=== PATIENT | female | born 1980 | race Two or more races ===

== ENCOUNTER → 2024-10-11 | Outpatient (CLI) | payer OTHER, SELFPAY ==
--- NOTE | 2024-10-11 15:00 | XR_ITS ---
Examination: Diagnostic digital mammography, bilateral Computer aided detection 3-D breast Tomosynthesis, bilateral Date and time of exam: October 11, 2024 1458 hours Compared to mammograms dating to June 02, 2023 INDICATIONS: Intermittent left breast pain beginning one year ago Technique: Nonmagnified MLO, CC views of the breasts to been obtained, reconstructed from 3-D Tomosynthesis images. R2 computer aided detection program utilized for evaluation of suspicious masses and/or abnormal calcifications. 3-D Tomosynthesis images obtained. Findings: The breasts are heterogeneously dense, which may obscure small masses Circumscribed 21 mm mass inner upper left breast 12 mm nodule lobular margins inner right breast Impression: BI-RADS Category 0: Incomplete: Need additional imaging evaluation Recommend follow-up spot tomographic views of 12 mm nodule inner right breast as well as bilateral breast sonography to complete the workup.
--- NOTE | 2024-10-11 15:15 | XR_ITS ---
Examination: Breast ultrasound, unilateral, left complete Date and time of exam: October 11, 2024 1503 hours INDICATIONS: Intermittent left breast pain one year, outside mammogram June 02, 2023 19 mm mass upper inner left breast 11 mm mass left breast Technique: Real-time bhagat scale ultrasonographic imaging performed left breast including all 4 quadrants as well as nipple retroareolar and axillary region. Findings: 12:00 cyst 10 x 13 mm 7:00 cyst 15 x 15 mm 10:00 irregular mass 22 x 16 x 3 cm, taller than wide, indistinct margins IMPRESSION: BI-RADS Category 4: Suspicious for malignancy Suspicious mass 10:00 position left breast, biopsy is needed to exclude breast carcinoma, this mass is amenable to ultrasound-guided breast biopsy for diagnosis
== END | disposition home or self-care (01) ==
LOC: CDIM 14:47
PROVIDERS: Referring Provider Registered Nurse; Visit Provider Registered Nurse
DX: N63.22 Unspecified lump in the left breast, upper inner quadrant (principal); R92.342 Mammographic extreme density, left breast; N63.10 Unspecified lump in the right breast, unspecified quadrant
CPT/HCPCS: 76641; 77062; 77066; G0279

== ENCOUNTER → 2025-01-23 | Outpatient (CLI) | payer OTHER, SELFPAY ==
[2025-01-22 13:15] LABS: Basophils # (Auto) 0.1 Thou/mm3 (0.0-0.2); Basophils % (Auto) 1 % (0-2.5); Eosinophils # (Auto) 0.2 Thou/mm3 (0.0-0.5); Eosinophils % (Auto) 3 % (0-10); Hematocrit 30.8 % (36.0-46.0); Hemoglobin 9.5 g/dL (12.0-16.0); Immature Granulocytes Auto 0.02 Thou/mm3 (0.00-0.00); Lymphocytes # (Auto) 1.7 Thou/mm3 (1.0-4.8); Lymphocytes % (Auto) 25 % (10-50); Mean Corpuscular HGB Conc 30.8 g/dl (31.0-37.0); Mean Corpuscular Hemoglobin 21.7 pg (25.0-35.0); Mean Corpuscular Volume 70 fL (80-100); Monocytes # (Auto) 0.6 Thou/mm3 (0.0-0.8); Monocytes % (Auto) 9 % (0-12); Neutrophils # (Auto) 4.3 Thou/mm3 (1.8-7.7); Neutrophils % (Auto) 62 % (37-80); Nucleated Red Blood Cell # 0.00 Thou/mm3 (0.00-0.00); Nucleated Red Blood Cell % 0 /100 WBC (0); Platelet Count 331 Thou/mm3 (140-440); RDW Standard Deviation 45.1 fL (36.4-46.3); Red Blood Count 4.38 Miln/mm3 (4.00-5.20); White Blood Count 6.9 Thou/mm3 (3.6-11.0)
[2025-01-22 13:29] LABS: HCG,Qualitative Serum Negative
[2025-01-22 13:40] LABS: INR 1.0 (0.9-1.3); Partial Thromboplastin Time 25.2 Seconds (22.0-36.0); Prothrombin Time 10.7 Seconds (9.0-12.2)
--- NOTE | 2025-01-23 09:30 | XR_ITS ---
Examinations: Ultrasound-guided percutaneous breast biopsy, left breast 10:00 nodule Left breast sonography limited INDICATIONS: Left breast sonogram October 11, 2024 BI-RADS 4 suspicious nodule 10:00 position left breast. Exam date and time: January 23, 2025 0953 hours. Informed consent provided. Technique: A timeout was completed verifying correct patient, procedure, site, positioning, and special equipment if applicable Informed consent provided. The patient was placed in a supine position for the breast biopsy. Sonographic images of the breast were performed for localization of the suspicious nodule The patient's breast was prepped and draped in sterile fashion. Maximum sterile barrier technique, hand hygiene, ultrasound sterile technique 1% lidocaine was used to anesthetize the skin and breast adjacent to the suspicious nodule. Utilizing ultrasonographic guidance, 8 core biopsies were obtained of the suspicious nodule utilizing an 18-gauge BioPince needle. The specimens appears satisfactory. US guided breast biopsy marker placement. Estimated blood loss 3 cc. The patient tolerated the procedure well and there were no complications. Impression: Successful ultrasound-guided percutaneous breast biopsy, left breast 10:00 nodule. Ultrasound guided breast biopsy marker placement.
== END | disposition home or self-care (01) ==
LOC: SDIM 09:10
PROVIDERS: Radiology Diagnostic Radiology; PCP Registered Nurse; Referring Provider Registered Nurse; Visit Provider Registered Nurse
DX: C50.212 Malignant neoplasm of upper-inner quadrant of left female breast (principal); Z17.0 Estrogen receptor positive status [ER+]; Z17.21 Progesterone receptor positive status; Z01.812 Encounter for preprocedural laboratory examination
CPT/HCPCS: 19083; 36415; 84703; 85025; 85610; 85730; A4648

== ENCOUNTER 2025-02-27 08:41 | Outpatient (RCR) | payer MEDICAID, SELFPAY ==
--- NOTE | 2025-02-27 10:36 | CTCFLWUP_ITS ---
Patient: SIRISHA ANDRE : 1980 Page 3 of 5 FOLLOW UP NOTE DATE OF SERVICE: 02/27/2025 NAME: SIRISHA ANDRE ACCOUNT: [id number] : 1980 AGE: 44 INTERVAL HISTORY: Jes Grimm, a 44-year-old woman, presented with newly diagnosed left breast mucinous carcinoma. She self-palpated a breast mass in July, with biopsy confirming a 1.2 cm tumor that is 90% ER/TN positive. Her family history includes paternal aunts with breast cancer. She recently gave in October 2024. Treatment initiated with arimidex breast MRI ordered for staging, and referral made to breast surgeon Dr. Montelongo for surgical consultation. ONCOLOGY HISTORY: DIAGNOSIS: Left breast cancer DATE OF DIAGNOSIS: 10/2024 STAGE/TNM: Like stage 1 TREATMENT HISTORY: Care?Plan Start?Date Cycle Day Intent HISTORY OF PRESENT ILLNESS: Subjective History of Present Illness Sirisha Andre is a 44-year-old woman with a new diagnosis of breast cancer. The patient self-palpated a mass in her left breast in July while taking a shower. Her last mammogram and ultrasound in August 2023 were reported as normal. In October 2024, an ultrasound revealed a 22 x 16 x 3 mm mass with indistinct margins, taller than wide. Biopsy results showed mucinous carcinoma, measuring 1.2 cm. The patient was informed that what she was feeling was likely fat tissue rather than the actual cancer. The patient has a family history of breast cancer, with her father's sisters having from the disease, though the age of onset is unknown. She recently gave on October 07, 2024. The patient has not reported any specific symptoms related to the breast mass or cancer diagnosis. The oncologist has recommended starting hormone therapy with a daily pill to begin shrinking the tumor while awaiting further evaluation. An MRI of the breast has been ordered to ensure a clear view of the cancer before surgery. The patient has been referred to a breast specialist surgeon for consultation. Medical History - Breast cancer, newly diagnosed - Normal mammogram and ultrasound in August 2023 - Childbirth on October 07, 2024 Medications and Supplements - Hormone-blocking pill - Recently prescribed for breast cancer - To be taken once daily, any time of day - May cause side effects similar to menopause: hot flashes, body aches - Side effects expected to diminish over time Family History - Father's sisters: from breast cancer (age unknown) Social History - Living Situation: Patient has a daughter Objective Physical Examination Breast: Left breast palpated. Mass felt, described as very small. Laboratory, Imaging, and Diagnostic Test Results - Mammogram and ultrasound (August 2023): Normal - Ultrasound (October 2024): 22 x 16 x 3 mm mass, taller than wide with indistinct margins - Biopsy results: - Diagnosis: Mucinous carcinoma - Tumor size: 1.2 cm - ER/TN status: 90% positive - Ki-67: Positive (percentage not specified) OTHER MEDICAL HISTORY/CONDITIONS: Left?breast?cancer? Hypothyroid Anemia Left leg varicose Jul 2024 x 3 - last 2007 FAMILY HISTORY: Cancer History:?2 Pat aunts - breast -dx unknown ages SOCIAL HISTORY: Occupational?History:?Unemployed Education?Level:?Completed 9th grade Marital?Status:? Tobacco?Use:?Denies ETOH?Use:?Denies Drug?Note:?Denies Social?History?Note:?Lives?with? [employer] HISTORY: Menarche?-?Age:?13 Date?LMP:?02/12/2025 Hormone?Use:?Denies :?3 Live?Births:?3 Age?1st?:?21 MEDICATIONS: 1. Arimidex - 1 mg 1 tab Daily 2. levothyroxine - 150 mcg 1 tab Daily 3. Miralax - 17 gram/dose Daily 4. Vitamin D2 - 1,250 mcg (50,000 unit) 1 Capsule Weekly Medications Last Reconciled by Love Knight RN on 02/27/2025 ALLERGIES: No Known Drug Allergies REVIEW OF SYSTEMS: A complete 14-point review of systems was performed and is negative except as noted in interval history. PHYSICAL EXAMINATION: VITAL SIGNS: Temperature?97.7, B/P?130/76, Height?64.5?inches, Oxygen?Saturation?99% Weight?210?lbs PAIN: 0 - No pain ECOG Performance Status: 0 - Asymptomatic and fully active GENERAL APPEARANCE: Appears well, in no apparent distress, appropriately interactive. HEENT: Normocephalic, no temporal wasting, normal conjunctiva, no scleral icterus, normal hearing, lips without lesions, neck normal range of motion. CARDIOVASCULAR: Not assessed. PULMONARY: Normal respiratory effort, no respiratory distress or use of accessory muscles, speaking in full sentences, no tachypnea. EXTREMITIES: No pedal edema or cyanosis. SKIN: Normal skin appearance. NEUROLOGIC: Alert and oriented x4. PSHYCHIATRIC: Appropriate affect, mood normal, behavior normal, intact thought and speech. LABORATORY DATA: I have personally reviewed and interpreted each of the patient?s relevant lab tests, abnormal findings are below: Date ASSESSMENT/PLAN: Sirisha Andre is a 44-year-old woman with a new diagnosis of breast cancer, presenting for evaluation and management. Breast Cancer, Left Breast Assessment: Patient self-palpated a mass in her left breast in July 2024. Previous mammogram and ultrasound in August 2023 were normal. Ultrasound in October 2024 revealed a [id number] mm mass with indistinct margins, taller than wide. Biopsy confirmed mucinous carcinoma, measuring 1.2 cm. Tumor characteristics include 90% ER/TN positive and Ki-67 positive. Family history significant for breast cancer in paternal aunts. Based on current information, likely stage I breast cancer, pending further imaging studies. Plan: - Start hormonal therapy: arimidex - Order breast MRI for further evaluation and staging - Refer to breast surgeon, Dr. Montelongo recommended - Continue current medication until surgical intervention - Educate patient on potential side effects of hormonal therapy (hot flashes, body aches) - Follow up after MRI and surgical consultation ORDERS: Order # Description [id number] MRI + Breast + With Contrast [id number] MD Follow Up 4 Week RETURN TO CLINIC: I reviewed the diagnosis, prognosis, and recommended treatment/procedure options with the patient (and/or their legal sales representatives), including the potential benefits, risks, side effects and alternative therapies. We also discussed the option of no treatment and the possibility of clinical trial participation, if applicable. All questions were addressed, and they demonstrated understanding. They provided informed consent to proceed with the proposed plan of care. BILLING AND COMPLIANCE: I reviewed external records from providers outside my specialty as summarized above. I spent a total of 50 minutes on this patient?s care on the day of their visit excluding time spent related to any billed procedures. This time includes time spent with the patient as well as time spent documenting in the medical record, reviewing patients records and tests, obtaining history, placing orders, communicating with other healthcare professionals, counseling the patient, family or caregiver, and/or care coordination for the diagnoses above. Electronically Signed by: Henrry Delgado MD T: 10:34 AM CC: PCP: Referring: Anita Dyson This document was completed utilizing speech recognition software. Grammatical errors, random word insertions, pronoun errors, and incomplete sentences are an occasional consequence of this system due to software limitations, ambient noise, and hardware issues. Any formal questions or concerns about the content, text or information contained within the body of this dictation should be directly addressed to the provider for clarification.
== END 2025-03-04 23:59 | disposition home or self-care (01) ==
LOC: SCTC 08:41
PROVIDERS: PCP Registered Nurse; Referring Provider Registered Nurse; Visit Provider Internal Medicine Hematology & Oncology
DX: C50.212 Malignant neoplasm of upper-inner quadrant of left female breast (principal); Z17.0 Estrogen receptor positive status [ER+]; Z17.21 Progesterone receptor positive status
CPT/HCPCS: 99213; G0463

== ENCOUNTER 2025-04-03 14:49 | Outpatient (RCR) | payer MEDICAID, SELFPAY ==
--- NOTE | 2025-04-21 08:51 | CTCFLWUP_ITS ---
Patient: SIRISHA ANDRE : 1980 Page 3 of 4 FOLLOW UP NOTE DATE OF SERVICE: 04/03/2025 NAME: SIRISHA ANDRE ACCOUNT: [id number] : 1980 AGE: 44 INTERVAL HISTORY: Jes Grimm, a 44-year-old woman, presented with newly diagnosed left breast mucinous carcinoma. She self-palpated a breast mass in July, with biopsy confirming a 1.2 cm tumor that is 90% ER/MA positive. Her family history includes paternal aunts with breast cancer. She recently had biopsy january 2025. Treatment initiated with tamoxifen to be held once surgery scheduled atleast one week prior to surgery . breast MRI ordered for staging, and referral made to breast surgeon Dr. Montelongo for surgical consultation. ONCOLOGY HISTORY: DIAGNOSIS: Left breast cancer DATE OF DIAGNOSIS: 10/2024 STAGE/TNM: Like stage 1 TREATMENT HISTORY: Care?Plan Start?Date Cycle Day Intent HISTORY OF PRESENT ILLNESS: Subjective History of Present Illness Sirisha Andre is a 44-year-old woman with a new diagnosis of breast cancer. The patient self-palpated a mass in her left breast in July while taking a shower. Her last mammogram and ultrasound in August 2023 were reported as normal. In October 2024, an ultrasound revealed a 22 x 16 x 3 mm mass with indistinct margins, taller than wide. Biopsy results showed mucinous carcinoma, measuring 1.2 cm. The patient was informed that what she was feeling was likely fat tissue rather than the actual cancer. The patient has a family history of breast cancer, with her father's sisters having from the disease, though the age of onset is unknown. The patient has not reported any specific symptoms related to the breast mass or cancer diagnosis. The oncologist has recommended starting hormone therapy with a daily pill to begin shrinking the tumor while awaiting further evaluation. An MRI of the breast has been ordered to ensure a clear view of the cancer before surgery. The patient has been referred to a breast specialist surgeon for consultation. Medical History - Breast cancer, newly diagnosed - Normal mammogram and ultrasound in August 2023 - Medications and Supplements - Hormone-blocking pill - Recently prescribed for breast cancer - To be taken once daily, any time of day - May cause side effects similar to menopause: hot flashes, body aches - Side effects expected to diminish over time Family History - Father's sisters: from breast cancer (age unknown) Social History - Living Situation: Patient has a daughter Objective Physical Examination Breast: Left breast palpated. Mass felt, described as very small. Laboratory, Imaging, and Diagnostic Test Results - Mammogram and ultrasound (August 2023): Normal - Ultrasound (October 2024): 22 x 16 x 3 mm mass, taller than wide with indistinct margins - Biopsy results: - Diagnosis: Mucinous carcinoma - Tumor size: 1.2 cm - ER/MA status: 90% positive - Ki-67: Positive (percentage not specified) OTHER MEDICAL HISTORY/CONDITIONS: Left?breast?cancer Hypothyroid Anemia Left leg varicose Jul 2024 x 3 - last 2007 FAMILY HISTORY: Cancer History:?2 Pat aunts - breast -dx unknown ages SOCIAL HISTORY: Occupational?History:?Unemployed Education?Level:?Completed 9th grade Marital?Status:? Tobacco?Use:?Denies ETOH?Use:?Denies Drug?Note:?Denies Social?History?Note:?Lives?with? [employer] HISTORY: Menarche?-?Age:?13 Date?LMP:?02/12/2025 Hormone?Use:?Denies :?3 Live?Births:?3 Age?1st?:?21 MEDICATIONS: 1. Arimidex - 1 mg 1 tab Daily 2. levothyroxine - 150 mcg 1 tab Daily 3. Miralax - 17 gram/dose Daily 4. Vitamin D2 - 1,250 mcg (50,000 unit) 1 Capsule Weekly Medications Last Reconciled by Nimisha Puente MD on 04/03/2025 ALLERGIES: No Known Drug Allergies REVIEW OF SYSTEMS: A complete 14-point review of systems was performed and is negative except as noted in interval history. PHYSICAL EXAMINATION: VITAL SIGNS: Temperature?99.2, B/P?125/74, Oxygen?Saturation?98% Weight?201?lbs PAIN: 0 - No pain ECOG Performance Status: 0 - Asymptomatic and fully active GENERAL APPEARANCE: Appears well, in no apparent distress, appropriately interactive. HEENT: Normocephalic, no temporal wasting, normal conjunctiva, no scleral icterus, normal hearing, lips without lesions, neck normal range of motion. CARDIOVASCULAR: Not assessed. PULMONARY: Normal respiratory effort, no respiratory distress or use of accessory muscles, speaking in full sentences, no tachypnea. EXTREMITIES: No pedal edema or cyanosis. SKIN: Normal skin appearance. NEUROLOGIC: Alert and oriented x4. PSHYCHIATRIC: Appropriate affect, mood normal, behavior normal, intact thought and speech. LABORATORY DATA: I have personally reviewed and interpreted each of the patient?s relevant lab tests, abnormal findings are below: Date ASSESSMENT/PLAN: Sirisha Andre is a 44-year-old woman with a new diagnosis of breast cancer, presenting for evaluation and management. Breast Cancer, Left Breast Assessment: Patient self-palpated a mass in her left breast in July 2024. Previous mammogram and ultrasound in August 2023 were normal. Ultrasound in October 2024 revealed a [id number] mm mass with indistinct margins, taller than wide. Biopsy confirmed mucinous carcinoma, measuring 1.2 cm. Tumor characteristics include 90% ER/MA positive and Ki-67 positive. Family history significant for breast cancer in paternal aunts. Based on current information, likely stage I breast cancer, pending further imaging studies. Plan: - Start hormonal therapy: tamoxifen - Order breast MRI for further evaluation and staging - Refer to breast surgeon, Dr. Montelongo - Continue current medication until surgical intervention - Educate patient on potential side effects of hormonal therapy (hot flashes, body aches) - Follow up after MRI and surgical consultation Harmone levels to confirm menopause Patient is Italian speaking and prefer family translation but is difficult ascertain clear history. Professional team cdl driver was used and history confirmed and corrected during the visit. ORDERS: Order # Description RETURN TO CLINIC: I reviewed the diagnosis, prognosis, and recommended treatment/procedure options with the patient (and/or their legal customer account representative), including the potential benefits, risks, side effects and alternative therapies. We also discussed the option of no treatment and the possibility of clinical trial participation, if applicable. All questions were addressed, and they demonstrated understanding. They provided informed consent to proceed with the proposed plan of care. BILLING AND COMPLIANCE: I reviewed external records from providers outside my specialty as summarized above. I spent a total of 50 minutes on this patient?s care on the day of their visit excluding time spent related to any billed procedures. This time includes time spent with the patient as well as time spent documenting in the medical record, reviewing patients records and tests, obtaining history, placing orders, communicating with other healthcare professionals, counseling the patient, family or caregiver, and/or care coordination for the diagnoses above. Electronically Signed by: {Object.Sanct_ID*[email or web address]@M}, {Object.Sanct_ID*PnP.Suffix@U} D: {Object.Sanct_Date} T: {Object.Sanct_Time} CC: PCP: Referring: Anita Dyson This document was completed utilizing speech recognition software. Grammatical errors, random word insertions, pronoun errors, and incomplete sentences are an occasional consequence of this system due to software limitations, ambient noise, and hardware issues. Any formal questions or concerns about the content, text or information contained within the body of this dictation should be directly addressed to the provider for clarification.
== END 2025-04-04 23:59 | disposition home or self-care (01) ==
LOC: SCTC 14:49
PROVIDERS: PCP Registered Nurse; Referring Provider Registered Nurse; Visit Provider Internal Medicine Hematology & Oncology
DX: C50.212 Malignant neoplasm of upper-inner quadrant of left female breast (principal); Z17.0 Estrogen receptor positive status [ER+]; Z17.21 Progesterone receptor positive status; Z80.3 Family history of malignant neoplasm of breast
CPT/HCPCS: 99212; G0463

== ENCOUNTER → 2025-04-29 | Outpatient (CLI) | payer OTHER, SELFPAY ==
--- NOTE | 2025-04-29 12:56 | XR_ITS ---
Examination: Diagnostic digital mammography, unilateral, right Computer aided detection 3-D breast Tomosynthesis, unilateral Date and time of exam: April 29, 2025, 1303 hours INDICATIONS: Mammogram October 11, 2024 12 mm nodule inner right breast Technique: Nonmagnified MLO, CC views of the right breast have been obtained, reconstructed from 3-D Tomosynthesis images. R2 computer aided detection program utilized for evaluation of suspicious masses and/or abnormal calcifications. 3-D Tomosynthesis images obtained. Findings: The breast is heterogeneously dense, which may obscure small masses There remains focal asymmetry lower right breast on the spot compression MLO view IMPRESSION: BI-RADS Category 3: Probably benign findings Recommend 1 additional 6-month right mammogram follow-up
--- NOTE | 2025-04-29 12:58 | XR_ITS ---
Examination: Breast ultrasound, unilateral, right Date and time of exam: April 29, 2025, 1312 hours INDICATIONS: Mammogram october 1102/2000 2512 mm nodule lobular margins in the right breast, family history of breast cancer, history left breast biopsy 10:00 nodule January 23, 2025 positive for mucinous carcinoma Technique: Real-time bhagat scale ultrasonographic imaging performed right breast including all 4 quadrants as well as nipple retroareolar and axillary region. Findings: 12:00 cyst 7 x 9 mm No solid nodules Smaller cysts IMPRESSION: BI-RADS Category 2: Benign findings
== END | disposition home or self-care (01) ==
PROVIDERS: PCP Registered Nurse; Referring Provider Registered Nurse; Visit Provider Registered Nurse
DX: R92.331 Mammographic heterogeneous density, right breast (principal); R92.8 Other abnormal and inconclusive findings on diagnostic imaging of breast; Z80.3 Family history of malignant neoplasm of breast
CPT/HCPCS: 76641; 77061; 77065; G0279

== ENCOUNTER 2025-05-06 13:00 | Outpatient (RCR) | payer MEDICAID, SELFPAY | END 2025-06-04 23:59 | disposition home or self-care (01) | LOC: SCTC 13:00 | PROVIDERS: PCP Registered Nurse; Referring Provider Registered Nurse; Visit Provider Internal Medicine Hematology & Oncology | DX: C50.919 Malignant neoplasm of unspecified site of unspecified female breast (principal); C50.212 Malignant neoplasm of upper-inner quadrant of left female breast; Z17.0 Estrogen receptor positive status [ER+]; Z17.21 Progesterone receptor positive status; Z17.32 Human epidermal growth factor receptor 2 negative status; Z79.810 Long term (current) use of selective estrogen receptor modulators (SERMs) | CPT/HCPCS: 96402; J1950 ==

== ENCOUNTER → 2025-05-13 | Outpatient (CLI) | payer MEDICAID, SELFPAY ==
--- NOTE | 2025-05-13 14:55 | XR_ITS ---
EXAMINATION: MRI bilateral breast without intravenous contrast MRI bilateral breasts with intravenous contrast May 13, 2025, 0422 hours, comparison right breast sonogram April 29, 2025, mammogram April 29, 2025, mammogram October 11, 2024 INDICATIONS: Diagnosis breast cancer January 27, 2025, left breast left breast sonogram October 11, 2024 10:00 BI-RADS 4 suspicious nodule 22 x 16 x 30 mm, biopsied on January 23, 2025 TECHNIQUE AND FINDINGS: Bilateral breast MRI images pre and post 18 cc gadolinium 22 x 34 mm 10:00 left breast mass, spiculated margins Moderate signal intensity breast architecture Mild background breast enhancement No chest wall mass No pathologic axillary lymphadenopathy Contrast images demonstrate rapid wash-in and rapid washout involving the 10:00 mass left breast IMPRESSION: BI-RADS Category 5, known 10:00 left breast malignancy, measuring 22 x 28 x 34 mm No pathologic axillary lymphadenopathy, no right breast mass, no chest wall mass
== END | disposition home or self-care (01) ==
PROVIDERS: PCP Registered Nurse; Referring Provider Internal Medicine Hematology & Oncology; Visit Provider Internal Medicine Hematology & Oncology
DX: C50.919 Malignant neoplasm of unspecified site of unspecified female breast (principal)
CPT/HCPCS: 77049; A9577; C8908